=== PATIENT | female | born 1935 | race Caucasian/White ===

== ENCOUNTER 2017-07-27 05:54 | Inpatient (IN) | payer OTHER ==
[2017-07-24 16:02] VITALS: BMI 23.3
[2017-07-27] MEDS ORDERED: CEFAZOLIN 1 GM/D5W 50 ML IVPB ONE (06:07)
[2017-07-27] MEDS ORDERED: GABAPENTIN 300 MG CAPSULE (FP) PO ONE (06:07)
[2017-07-27] MEDS ORDERED: PANTOPRAZOLE 40 MG TABLET (FP) PO ONE (06:07)
[2017-07-27] MEDS ORDERED: oxyCODONE HCL 10 MG SUSTAINED ACTING TABLET PO ONE (06:07)
[2017-07-27] MEDS ORDERED: CELECOXIB 200 MG CAPSULE PO ONE (06:07)
[2017-07-27] MEDS ORDERED: ROPIVICAINE 0.2%/MORPH PF/KETOROLAC - 51ML DISP.SYRINGE IA ONE (06:07)
[2017-07-27] MEDS ORDERED: TRANEXAMIC ACID 1000 MG/10 ML VIAL IVPUSH ONE (06:07)
[2017-07-27] MEDS ORDERED: VANCOMYCIN 1,000 MG VIAL (RESTRICTED TO ID ONLY) ONE (07:14)
[2017-07-27] MEDS ORDERED: ceFAZolin SODIUM 1 GM VIAL ONE (07:14)
[2017-07-27] MEDS ORDERED: LIDOCAINE 1% P/F 10 MG/ML VIAL ONE (07:26)
[2017-07-27] MEDS ORDERED: MIDAZOLAM HCL 2 MG/2 ML SINGLE DOSE VIAL ONE (07:26)
[2017-07-27] MEDS ORDERED: DEXAMETHASONE SOD PHOSPHATE/PF 10 MG/ML SDV ONE (07:26)
--- NOTE | 2017-07-27 07:56 | HP ---
Admitting History and Physical - Admission Chief Complaint: Right hip osteoarthritis x years History of Present Illness: 82 year old female presents in regard to her right hip. Longstanding history of right hip osteoarthritis. Patient complains of pain,limited ROM, difficulty ambulating and difficulty completing ADLs. Patient has failed conservative treatment including PO medication, activity modification, exercise program and injections. At this point, patient would like to proceed with a right total hip arthroplasty (MAKOplasty) History Source: Patient - Past Surgical History Additional Past Surgical History: See written H&P - Smoking History Smoking history: Never smoked Have you smoked in the past 12 months: No - Alcohol/Substance Use Hx Alcohol Use: Yes (RARE) Home Medications - Allergies Allergies/Adverse Reactions: Allergies Allergy/AdvReac Type Severity Reaction Status Date / Time No Known Allergies Allergy Verified 07/24/17 15:45 - Home Medications Home Medications: Ambulatory Orders Calcium 250Mg/Vit-D 125 Units [Oscal 250 mg+D -] 1 combo PO DAILY 05/12/15 Garlic 1 cap PO DAILY 05/12/15 Gluc Pabon/Chondro Pabon A/Vit C/Mn [Glucosamine 1,500 Complex Cap] 1 tab PO DAILY 05/20 Multivitamins [Multivit ([facility] Formulary)] 1 tab PO DAILY 05/12/15 [place]-3 Fatty Acids [[place]-3] 1,000 mg PO DAILY 05/12/15 Simvastatin [Zocor -] 20 mg PO HS 05/12/15 Ubidecarenone [Coq10] 50 mg PO DAILY 05/12/15 Vitamin E 400 unit PO DAILY 05/12/15 Aspirin [Ecotrin] 81 mg PO DAILY 07/03/17 Cholecalciferol (Vitamin D3) [Vitamin D-400] 400 unit PO DAILY 07/03/17 Glucosam/Chond/Hyalu/Cf Borate [Move Free Joint Health Tablet] 1 each PO DAILY 07/03/17 Hubbell Oil/[place]-3 Fatty Acids [[place] Oil 1,000 mg Softgel] 1 each PO DAILY Review of Systems - Review of Systems Musculoskeletal: reports: Decreased ROM (Right hip), Joint Pain (Right hip) Physical Examination Vital Signs: Vital Signs Temperature 98.2 F 07/27/17 07:09 Pulse Rate 84 07/27/17 07:09 Respiratory Rate 18 07/27/17 07:09 Blood Pressure 138/69 07/27/17 07:09 O2 Sat by Pulse Oximetry (%) Constitutional: Yes: Well Nourished, No Distress Eyes: Yes: Conjunctiva Clear HENT: Yes: Atraumatic, Normocephalic Neck: Yes: Supple Cardiovascular: Yes: Regular Rate and Rhythm Respiratory: Yes: Regular Gastrointestinal: Yes: Soft ...Rectal Exam: Yes: Deferred Musculoskeletal: Yes: Joint Stiffness (right hip), Joint Swelling (right hip) Assessment/Plan 82 year old female presents today in regard to her right hip. Longstanding history of right hip osteoarthritis. Patient complains of pain, limited ROM, difficulty ambulating and difficulty with ADLs. Patient has failed all conservative treatment. Proceed with right total hip arthroplasty (MAKOplasty).
--- NOTE | 2017-07-27 11:55 | OP ---
Operative Note - Note: Operative Date: 07/27/17 Pre-Operative Diagnosis: right hip OA Operation: right MATTY MAKOplasty Post-Operative Diagnosis: Same as Pre-op Surgeon: Jonathon Cole [employer] Counselors: Tiny Matute Anesthesia: Spinal Estimated Blood Loss (mls): 200
[2017-07-27] MEDS ORDERED: MAGNESIUM HYDROX 2400MG/30ML ORAL SUSPENSION 30 ML CUP PO PRN (12:07)
[2017-07-27] MEDS ORDERED: ONDANSETRON 4 MG/2 ML VIAL IVPB PRN (12:07)
[2017-07-27] MEDS ORDERED: MAG HYDROX/AL HYDROX/SIMETH 30 ML UNIT-DOSE CUP PO PRN (12:07)
[2017-07-27] MEDS ORDERED: LACTATED RINGERS SOLUTION 1,000 ML IV SCH (12:15)
[2017-07-27] MEDS: traMADol HCL 50 MG TABLET PO SCH ×2 (12:30→17:34)
[2017-07-27] MEDS ORDERED: ACETAMINOPHEN 1000 MG/100 ML VIAL (NON FORMULARY) IVPB ONE (12:30)
[2017-07-27] MEDS: KETOROLAC TROMETHAMINE 30 MG/1 ML VIAL IVPUSH SCH ×2 (12:30→17:32)
[2017-07-27] MEDS ORDERED: ONDANSETRON 4 MG/2 ML VIAL IVPUSH PRN (12:46)
[2017-07-27] MEDS ORDERED: oxyCODONE HCL 5 MG TABLET PO PRN (12:47)
--- NOTE | 2017-07-27 13:43 | SPEC ---
DATE OF OPERATION: 07/27/2017 PREOPERATIVE DIAGNOSIS: Right hip osteoarthritis. POSTOPERATIVE DIAGNOSIS: Right hip osteoarthritis. PROCEDURE: Right total hip replacement with MAKOplasty robotic navigation. ATTENDING: Jonathon Cole MD TRAVEL REGISTERED NURSE ONCOLOGY: JOHN Lugo ANESTHESIA: Spinal plus sedation. ESTIMATED BLOOD LOSS: 200 mL COMPLICATIONS: None. SPECIMENS: Resected bone was sent for pathological analysis. DISPOSITION: The patient was transferred to the PACU in stable condition. IMPLANTS USED: Edison Accolade II size 5 femoral component, [place] Tritanium 54-mm acetabular component with 30-mm screw, MDM bipolar head ball with ceramic inner head. INDICATIONS: This is an 82-year-old female who presented to the office with severe right hip pain. She had a history of bilateral hip osteoarthritis and had undergone a left total hip replacement in 2014 with complete pain relief afterwards. She had scheduled the right total hip replacement for July 19, 2017, with Dr. Christopher Arce, but he left [facility], and her surgery was canceled at the last minute. She was referred to me for the procedure. At this point, she had already been worked up and medically cleared and had expected to have the surgery on that date. We tried to get her back on the schedule as soon as possible, and an opening did arise. Her radiographs did show severe grade 4 osteoarthritis of the hip. She had been treated nonoperatively by Dr. Arce for quite some time and that had failed and she was indicated for the hip replacement. The risks, benefits, and alternatives to the procedure were explained to the patient in great detail, and she elected to proceed with the surgery. DESCRIPTION OF PROCEDURE: On the day of surgery, the patient was taken to the OR and placed on the OR table. Spinal anesthesia was administered by the anesthesiologist. The patient was then positioned in the lateral decubitus position on the table and all bony prominences were padded. An axillary roll was placed. The operative hip was then prepped and draped in the usual sterile fashion and intravenous antibiotics were given for infection prophylaxis. A surgical time-out was then performed with the team, and the patients identity, procedure, side, availability of implants, and the administration of antibiotics were confirmed. An approximately 15-cm longitudinal incision was made through the skin centered on the greater trochanter of the hip. This dissection was carried down through the subcutaneous tissues to the deep fascia. This fascia was then incised and a Cobra was placed around the inferior femoral neck. Electrocautery was used to reflect the anterior 40% of the gluteus medius and minimus starting at the musculotendinous junction and leaving a cuff for closure. This was reflected to reveal the capsule of the hip joint. An anterior capsulectomy was performed and the femoral head and neck were visualized. Grade 4 changes were noted diffusely throughout the joint. At this point, three small stab incisions were made superior to the main incision along the iliac crest. Three self-drilling Steinmann pins were then placed and the Woldme pelvic array was attached. Reference points on the limb were then entered into the robotic device and the limb length deficiency, offset, and femoral neck resection level were then calculated by the software. The hip was then dislocated with traction and external rotation. An oscillating saw was used to make the femoral neck cut at the level previously templated, and the femoral head was removed. Attention was then turned to the acetabulum. Retractors were then placed around the acetabulum and the labrum was removed. An acetabular checkpoint pin and the Woldme software were used to register the contours of the acetabulum. The acetabulum was then reamed in a single stage to the preoperatively templated size using the Woldme robotic arm. The appropriately sized cup was then impacted and had solid fixation as well as the preset inclination and version of 40 and 20 degrees, respectively. A polyethylene liner was then placed in the cup. Attention was then turned back to the femur, which was externally rotated for improved visualization. A femoral neck elevator was used to present the femoral neck cut, a box osteotome was used to enter the femoral canal, and a canal finder was used to go down the femoral shaft. The Tyrese broaches were used sequentially until the optimal scratch fit was achieved. This correlated with the preoperatively templated size. From here, several different offset head and neck configurations were tested until excellent stability and length were obtained. These measurements were quantified using the Woldme software. All trial components were then removed, the femur was copiously irrigated, and the final components were placed. Leg length and stability were checked again and found to be excellent. Irrigation was performed again. Wound closure was started by repairing the abductor muscles with a no. 2 FiberWire stitch in a Krackow configuration passed through bone tunnels in the greater trochanter and tied over a bony bridge. This repair was then reinforced with a 0 V-Loc 180 barbed suture. Next, no. 1 Polysorb and 0 V-Loc 180 were used to close the fascia. The deep subcutaneous tissue was closed with no. 1 Polysorb sutures, and 2-0 Polysorb was used for the superficial subcutaneous tissue. The skin was closed using both 3-0 V-Loc 90 suture in a running subcuticular fashion and SwiftSet skin adhesive. The Tyrese array and pins were removed from the iliac crest and the stab incision sites were irrigated and closed with 4-0 Polysorb sutures and SwiftSet skin adhesive. Once this was completed, a sterile dressing was applied. The patient was then awakened and taken to the PACU in stable condition. ADDENDUM: After the final components were placed, a 3-minute dilute Betadine lavage was performed according to the [facility] protocol. Following this, the wounds were thoroughly irrigated with normal saline via pulsatile lavage, and wound closure was begun. Sarina EASON/[id number]
[2017-07-27] MEDS: CEFAZOLIN 1 GM/D5W 50 ML IVPB SCH (17:34)
[2017-07-27] MEDS: ACETAMINOPHEN 325 MG TABLET (FP) PO SCH (17:41)
[2017-07-27] MEDS: oxyCODONE HCL 5 MG TABLET PO PRN (19:31)
[2017-07-27] MEDS ORDERED: DEXAMETHASONE SOD PHOSPHATE 10 MG/1 ML VIAL IVPB ONE (20:00)
[2017-07-27] MEDS: ASCORBIC ACID 500 MG TABLET (FP) PO SCH (21:34)
[2017-07-27] MEDS: SENNOSIDES/DOCUSATE COMBO (SENNA PLUS) TABLET (UD) PO SCH (21:34)
[2017-07-27] MEDS: GABAPENTIN 300 MG CAPSULE (FP) PO SCH (21:34)
[2017-07-27] MEDS: oxyCODONE HCL 10 MG SUSTAINED ACTING TABLET PO SCH (21:34)
[2017-07-27] MEDS: ATORVASTATIN CA 10 MG TABLET (FP) PO SCH (21:34)
[2017-07-27] MEDS: CELECOXIB 200 MG CAPSULE PO SCH (21:34)
[2017-07-28] MEDS: KETOROLAC TROMETHAMINE 30 MG/1 ML VIAL IVPUSH SCH ×2 (00:18→06:14)
[2017-07-28] MEDS: traMADol HCL 50 MG TABLET PO SCH ×4 (00:19→18:15)
[2017-07-28] MEDS: ACETAMINOPHEN 325 MG TABLET (FP) PO SCH ×4 (00:20→18:15)
[2017-07-28] MEDS: CEFAZOLIN 1 GM/D5W 50 ML IVPB SCH (01:44)
[2017-07-28 08:10] LABS: MCH 32.8 pg (25.7-33.7); MCHC 34.3 g/dl (32.0-36.0); MEAN CELL VOLUME 95.7 fl (80-96); MEAN PLT VOLUME 8.4 fl (7.5-11.1); PLATELET COUNT 211 K/MM3 (134-434); RDW 12.1 % (11.6-15.6); WHITE BLOOD COUNT 11.2 K/mm3 (4.0-10.8)
[2017-07-28] MEDS: ASPIRIN 325 MG TABLET PO SCH (08:33)
[2017-07-28 08:42] LABS: ANION GAP 6 (8-16); CALCIUM 9.5 mg/dl (8.4-10.2); CO2 27 mmol/L (22-28); CREATININE 0.8 mg/dl (0.6-1.3); GLUCOSE,RANDOM 157 mg/dl (74-106)
[2017-07-28] MEDS: CELECOXIB 200 MG CAPSULE PO SCH ×2 (09:03→21:08)
[2017-07-28] MEDS: PANTOPRAZOLE 40 MG TABLET (FP) PO SCH (09:03)
[2017-07-28] MEDS: GABAPENTIN 300 MG CAPSULE (FP) PO SCH ×2 (09:03→21:08)
[2017-07-28] MEDS: MULTIVITAMINS (DAILY MVI) TABLET (FP) PO SCH (09:04)
[2017-07-28] MEDS: ASCORBIC ACID 500 MG TABLET (FP) PO SCH ×2 (09:04→21:08)
[2017-07-28] MEDS: SENNOSIDES/DOCUSATE COMBO (SENNA PLUS) TABLET (UD) PO SCH ×2 (09:04→21:08)
[2017-07-28] MEDS: oxyCODONE HCL 10 MG SUSTAINED ACTING TABLET PO SCH ×2 (09:04→21:09)
--- NOTE | 2017-07-28 11:24 | PN ---
Progress Note (short form) - Note Progress Note: 82 yo female POD#1 s/p MATTY. Doing well. Ambulating with assistance. Participating in PT. Tolerating PO. Paid adequately controlled.
--- NOTE | 2017-07-28 20:39 | PN ---
Progress Note (short form) - Note Progress Note: Pt seen and examined. Comfortable. Doing well. AVSS Selected Entries 07/28/17 14:09 Temperature 98.2 F Pulse Rate 63 Respiratory 16 Rate Blood Pressure 86/42 O2 Sat by Pulse 95 Oximetry (%) Laboratory Tests 07/28/17 07/28/17 07:00 07:00 WBC 11.2 H D Hgb 11.0 D Hct 32.1 L D Plt Count 211 Sodium 138 Potassium 5.1 Chloride 105 Carbon Dioxide 27 Anion Gap 6 L BUN 23 H D Creatinine 0.8 D Random Glucose 157 H D Calcium 9.5 Gen: NAD RLE: c/d/i, NVID A/P 82yo female POD#1 s/p R MATTY 1. PT/OOB - WBAT RLE 2. D/C in AM after PT; f/u in office in 10-14 days.
--- NOTE | 2017-07-28 20:48 | DS ---
Physical Examination Vital Signs: Vital Signs Temperature 98.2 F 07/28/17 14:09 Pulse Rate 63 07/28/17 14:09 Respiratory Rate 16 07/28/17 20:22 Blood Pressure 86/42 07/28/17 14:09 O2 Sat by Pulse Oximetry (%) 95 07/28/17 20:22 Labs: CBC, BMP 07/28/17 07:00 07/28/17 07:00 Discharge Summary Reason For Visit: RIGHT HIP OSTEOARTHRITIS Current Active Problems Osteoarthritis of right hip (Acute) Procedures: Principal: right MATTY Hospital Course: Admitted for elective surgery. Procedure performed without complications. Pt received postoperative antibiotic prophylaxis and DVT ppx. Ambulated with physical therapy. Stable for discharge home with outpatient followup. Condition: Stable - Instructions Diet, Activity, Other Instructions: Dr Cole - Hip Replacement Instructions Keep the Aquacel dressing on until removed by Dr. Cole in 10-14 days - it is antibacterial and waterproof and you can shower with it on. Call the office for a follow-up appointment with Dr. Cole in 10-14 days. Take one (enteric-coated) Aspirin 325mg daily for 6 weeks to prevent blood clots in your legs. Take one Pantoprazole 40mg daily for 6 weeks to protect against heartburn and ulcers. Take Celebrex 200mg once daily for 30 days to reduce swelling and inflammation. Take a multivitamin, extra Vitamin C supplement, and stool softener daily. For pain: *Mild pain (1-3/10): Take 1 Tramadol tablet every 4 hours as needed. Moderate pain (4-6/10): Take 1 Tramadol tablet and 1 Percocet tablet every 4 hours as needed. Severe pain (7-10/10): Take 1 Tramadol tablet and 2 Percocet tablets every 4 hours as needed. Activity: You can put as much weight on the operative leg as you want. For the first 6 weeks, all you need to do is walk around the house, go up/down stairs, and sit down/get up. After 6 weeks when everything is healed (and bone has grown into the implant) you will be sent for more intensive outpatient physical therapy. Always use a walker or cane for balance and to prevent falls. Disposition: VNS/HOME HEALTH CARE - Home Medications Comprehensive Discharge Medication List: Ambulatory Orders Calcium 250Mg/Vit-D 125 Units [Oscal 250 mg+D -] 1 combo PO DAILY 05/12/15 Garlic 1 cap PO DAILY 05/12/15 Gluc Pabon/Chondro Pabon A/Vit C/Mn [Glucosamine 1,500 Complex Cap] 1 tab PO DAILY 05/20 Multivitamins [Multivit ([facility] Formulary)] 1 tab PO DAILY 05/12/15 [place]-3 Fatty Acids [[place]-3] 1,000 mg PO DAILY 05/12/15 Simvastatin [Zocor -] 20 mg PO HS 05/12/15 Ubidecarenone [Coq10] 50 mg PO DAILY 05/12/15 Vitamin E 400 unit PO DAILY 05/12/15 Cholecalciferol (Vitamin D3) [Vitamin D-400] 400 unit PO DAILY 07/03/17 Glucosam/Chond/Hyalu/Cf Borate [Move Free Joint Health Tablet] 1 each PO DAILY 07/03/17 Bude Oil/[place]-3 Fatty Acids [[place]ude Oil 1,000 mg Softgel] 1 each PO DAILY Ascorbic Acid [Vitamin C -] 500 mg PO BID tablet 07/28/17 Aspirin [ASA -] 325 mg PO DAILY@0800 tablet 07/28/17 Celecoxib [CeleBREX -] 200 mg PO DAILY #30 tab 07/28/17 Multivitamins [Multivit ([facility] Formulary)] 1 tab PO DAILY tab 07/28/17 Oxycodone HCl/Acetaminophen [Percocet 5-325 mg Tablet] 1 - 2 tab PO Q4H PRN #60 tablet MDD 8 07/28/17 Pantoprazole Sodium [Protonix -] 40 mg PO DAILY #40 tab 07/28/17 Sennosides/Docusate Sodium [Pericolace -] 2 tablet PO BID tablet 07/28/17 Tramadol HCl [Ultram -] 50 mg PO Q4H PRN #90 tablet MDD 6 07/28/17
[2017-07-28] MEDS: ATORVASTATIN CA 10 MG TABLET (FP) PO SCH (21:08)
[2017-07-28] MEDS: oxyCODONE HCL 5 MG TABLET PO PRN (21:09)
[2017-07-29] MEDS: ACETAMINOPHEN 325 MG TABLET (FP) PO SCH ×2 (03:48→05:56)
[2017-07-29] MEDS: traMADol HCL 50 MG TABLET PO SCH ×2 (03:48→05:55)
[2017-07-29 06:48] VITALS: BP 121/59; PULSE 72; TEMP 98.7
[2017-07-29 07:37] LABS: MCH 31.8 pg (25.7-33.7); MCHC 32.8 g/dl (32.0-36.0); MEAN CELL VOLUME 96.9 fl (80-96); MEAN PLT VOLUME 7.8 fl (7.5-11.1); PLATELET COUNT 203 K/MM3 (134-434); RDW 12.1 % (11.6-15.6)
[2017-07-29 08:07] LABS: ANION GAP 3 (8-16); CALCIUM 8.9 mg/dl (8.4-10.2); CO2 29 mmol/L (22-28); CREATININE 0.7 mg/dl (0.6-1.3); GLUCOSE,RANDOM 97 mg/dl (74-106)
[2017-07-29] MEDS: ASPIRIN 325 MG TABLET PO SCH (08:19)
[2017-07-29] MEDS: oxyCODONE HCL 10 MG SUSTAINED ACTING TABLET PO SCH (09:36)
[2017-07-29] MEDS: CELECOXIB 200 MG CAPSULE PO SCH (09:36)
[2017-07-29] MEDS: GABAPENTIN 300 MG CAPSULE (FP) PO SCH (09:36)
[2017-07-29] MEDS: MULTIVITAMINS (DAILY MVI) TABLET (FP) PO SCH (09:37)
[2017-07-29] MEDS: ASCORBIC ACID 500 MG TABLET (FP) PO SCH (09:37)
[2017-07-29] MEDS: PANTOPRAZOLE 40 MG TABLET (FP) PO SCH (09:37)
[2017-07-29] MEDS: SENNOSIDES/DOCUSATE COMBO (SENNA PLUS) TABLET (UD) PO SCH (09:37)
--- NOTE | 2017-07-31 14:54 | PATH ---
Surgical Pathology Report Patient Name: JAMEE HADLEY Med. Rec. #: [id number] /Age/Gender: 1935 (Age: 82) / F Account: [id number] Location: [facility] Taken: 07/27/2017 Received: 07/27/2017 Reported: 07/31/2017 Physicians: Jonathon Cole M.D. Specimen(s) Received RIGHT FEMORAL HEAD Clinical History Right hip osteoarthritis Final Diagnosis FEMORAL HEAD, RIGHT, TOTAL HIP REPLACEMENT: DEGENERATIVE JOINT DISEASE. Electronically Signed Koki Garcia M.D. Gross Description Received in formalin, labeled "right femoral head," is a 4.7 x 4.7 x 3 point cm. femoral head with a 1.6 cm length portion of femoral neck attached. The margin of resection is smooth. There is a 3 cm in greatest dimension area of eburnation identified. The remaining articular surface is goldman-yellow and diffusely granular. The underlying trabecular bone is yellow and hard. A client services representative section is submitted in one cassette, following decalcification. 07/28/2017 [facility]07/28/2017
== END 2017-07-29 12:30 | disposition home health service (06) | DRG 470 ==
LOC: FM/S 05:54
PROVIDERS: ADMIT Student in an Organized Health Care Education/Training Program; ATTEND Student in an Organized Health Care Education/Training Program
PROC: 8E0W0CZ Robotic Assisted Procedure of Trunk Region, Open Approach (ICD-10-PCS; 2017-07-27)
PROC: 0SR903A Replacement of Right Hip Joint with Ceramic Synthetic Substitute, Uncemented, Open Approach (ICD-10-PCS; principal; 2017-07-27 09:00)
DX: M16.11 Unilateral primary osteoarthritis, right hip (principal)
CPT/HCPCS: 36415; 73502-TC-RT; 73700-TC-RT; 80048; 85027; 88304-TC; 88311-TC; 94010; 94760; 97116-GP; 97162-GP

== ENCOUNTER 2019-06-01 13:00 | Emergency (ER) | payer OTHER | END 2019-06-01 14:03 | disposition home or self-care (01) | LOC: JERFT 13:00 ==

== ENCOUNTER 2022-03-01 13:28 | Inpatient (IN) | payer OTHER ==
[2022-03-01 13:41] VITALS: BMI 23.1
[2022-03-01] MEDS ORDERED: SODIUM CHLORIDE 500 ML IV STA (14:57)
[2022-03-01] MEDS ORDERED: FAMOTIDINE 20 MG/50 ML IVPB 20 MG/50 ML MG IVPB ONE (14:57)
[2022-03-01] MEDS ORDERED: ACETAMINOPHEN 1000 MG/100 ML BAG IVPB ONE (14:57)
[2022-03-01] MEDS ORDERED: ACETAMINOPHEN INJECTION 100 ML IVPB ONE (16:09)
[2022-03-01] MEDS ORDERED: FAMOTIDINE 10 MG/ML VIAL IVPB ONE (16:10)
[2022-03-01 16:23] LABS: BASO % 0.6 % (0-2.0); EOS % 1.1 % (0-4.5); HEMATOCRIT 46.5 % (32.4-45.2); HEMOGLOBIN 15.3 GM/dL (10.7-15.3); LYMPH % 33.3 % (8-40); MCH 32.6 pg (25.7-33.7); MCHC 32.8 g/dl (32.0-36.0); MEAN CELL VOLUME 99.3 fl (80-96); MEAN PLT VOLUME 9.4 fl (7.5-11.1); MONO % 8.5 % (3.8-10.2); NEUT % 56.5 % (42.8-82.8); PLATELET COUNT 208 10^3/uL (134-434); RBC 4.68 M/mm3 (3.60-5.2); RDW 15.1 % (11.6-15.6); WHITE BLOOD COUNT 7.1 K/mm3 (4.0-10.0)
[2022-03-01 16:32] LABS: CHLORIDE 105 mmol/L (98-107); SODIUM 137 mmol/L (136-145)
[2022-03-01 16:33] LABS: ALBUMIN 3.6 g/dl (3.4-5.0); CALCIUM 9.4 mg/dL (8.5-10.1); CO2 25 mmol/L (21-32); GLUCOSE,RANDOM 83 mg/dL (74-106)
[2022-03-01 16:35] LABS: BLOOD UREA NITROGEN 19.8 mg/dL (7-18); LIPASE 104 U/L (73-393)
[2022-03-01 16:37] LABS: CREATININE 0.9 mg/dL (0.55-1.3); SGOT/AST 112 U/L (15-37)
[2022-03-01 16:39] LABS: ALK PHOS 125 U/L (45-117); BILIRUBIN,TOTAL 1.1 mg/dL (0.2-1); TOT PROT 6.5 g/dl (6.4-8.2)
[2022-03-01 16:41] LABS: ANION GAP 6 MMOL/L (8-16); SGPT/ALT 68 U/L (13-61)
[2022-03-01] MEDS ORDERED: ASPIRIN 81 MG CHEWABLE TABLETS PO ONE (16:51)
[2022-03-01] MEDS ORDERED: ASPIRIN 81 MG CHEWABLE TABLETS ONE (17:15)
[2022-03-01 18:04] LABS: ALBUMIN 3.4 g/dl (3.4-5.0); BLOOD UREA NITROGEN 19.6 mg/dL (7-18); CALCIUM 9.1 mg/dL (8.5-10.1)
[2022-03-01 18:07] LABS: CREATININE 0.7 mg/dL (0.55-1.3)
[2022-03-01 18:07] LABS: URINE APPEARANCE CLEAR; URINE BILIRUBIN NEGATIVE (NEGATIVE); URINE COLOR YELLOW; URINE GLUCOSE (UA) NEGATIVE (NEGATIVE); URINE KETONE NEGATIVE (NEGATIVE); URINE LEUK ESTERASE NEGATIVE (NEGATIVE); URINE NITRITE NEGATIVE (NEGATIVE); URINE PROTEIN TRACE (NEGATIVE); URINE UROBILINOGEN 0.2 mg/dL (0.2-1.0)
[2022-03-01 18:08] LABS: BILIRUBIN,TOTAL 1.2 mg/dL (0.2-1); TOT PROT 5.5 g/dl (6.4-8.2)
[2022-03-01] MEDS ORDERED: amLODIPine BESYLATE 5 MG TABLET (FP) PO ONE (18:47)
[2022-03-01] MEDS ORDERED: amLODIPine BESYLATE 5 MG TABLET (FP) ONE (18:51)
[2022-03-01] MEDS ORDERED: ATORVASTATIN CA 80 MG TABLET (FP) PO ONE (21:15)
[2022-03-01] MEDS ORDERED: ATORVASTATIN CA 80 MG TABLET (FP) ONE (21:27)
[2022-03-02] MEDS ORDERED: FUROSEMIDE 40 MG/4 ML INJECTABLE VIAL IVPUSH ONE (01:42)
[2022-03-02] MEDS ORDERED: FUROSEMIDE 40 MG/4 ML INJECTABLE VIAL ONE (01:49)
[2022-03-02 07:00] LABS: BASO % 0.9 % (0-2.0); EOS % 1.8 % (0-4.5); HEMATOCRIT 45.9 % (32.4-45.2); HEMOGLOBIN 15.4 GM/dL (10.7-15.3); LYMPH % 29.3 % (8-40); MCH 32.8 pg (25.7-33.7); MCHC 33.6 g/dl (32.0-36.0); MEAN CELL VOLUME 97.7 fl (80-96); MEAN PLT VOLUME 8.8 fl (7.5-11.1); MONO % 8.6 % (3.8-10.2); NEUT % 59.4 % (42.8-82.8); PLATELET COUNT 156 10^3/uL (134-434); RDW 14.9 % (11.6-15.6); WHITE BLOOD COUNT 5.7 K/mm3 (4.0-10.0)
[2022-03-02 07:09] LABS: INR 1.36 (0.83-1.09); PROTHROMBIN TIME (PATIENT) 15.7 SEC (9.7-13.0)
[2022-03-02 07:22] LABS: ALBUMIN 3.4 g/dl (3.4-5.0); BLOOD UREA NITROGEN 17.1 mg/dL (7-18); MAGNESIUM 1.8 mg/dL (1.8-2.4)
[2022-03-02 07:25] LABS: BILIRUBIN,TOTAL 1.6 mg/dL (0.2-1); CREATININE 0.7 mg/dL (0.55-1.3); PHOSPHOROUS 3.4 mg/dL (2.5-4.9)
[2022-03-02 07:26] LABS: TOT PROT 5.5 g/dl (6.4-8.2)
[2022-03-02] MEDS ORDERED: METOPROLOL TARTRATE 25 MG TABLET (FP) PO ONE (07:46)
[2022-03-02 08:46] LABS: N-TERMINAL BNP 3533.3 pg/ml (5-450)
[2022-03-02] MEDS ORDERED: HEPARIN NA (PORCINE) 5,000 UNITS/ML 1ML VIAL IVPUSH PRN ×2 (09:28)
[2022-03-02] MEDS ORDERED: ASPIRIN 81 MG CHEWABLE TABLETS PO ONE (09:28)
[2022-03-02] MEDS ORDERED: HEPARIN - 25,000 UNIT in SODIUM CHLORIDE 495 ML IV SCH (09:30)
[2022-03-02] MEDS ORDERED: ENOXAPARIN NA (PORCINE) 40 MG/0.4 ML DISP.SYRIN SQ SCH (10:00)
[2022-03-02] MEDS ORDERED: FAMOTIDINE 10 MG TABLET PO SCH (10:00)
[2022-03-02] MEDS ORDERED: FAMOTIDINE 20 MG TABLET ONE (10:16)
[2022-03-02] MEDS ORDERED: ASPIRIN 325 MG TABLET ONE (10:16)
[2022-03-02] MEDS ORDERED: METOPROLOL TARTRATE 25 MG TABLET (FP) ONE (10:16)
[2022-03-02] MEDS ORDERED: HEPARIN INFUSION - 25,000 UNITS/500 ML INFUS.BAG IVPB ONE (10:17)
[2022-03-02] MEDS ORDERED: HEPARIN NA (PORCINE) 5,000 UNITS/ML 1ML VIAL ONE (10:17)
[2022-03-02] MEDS ORDERED: MAGNESIUM SULFATE IN WATER 2 GM/50 ML IVPB IVPB ONE (13:05)
[2022-03-02] MEDS ORDERED: POTASSIUM CHLORIDE TABS 20 MEQ TABLET.ER (FP) PO ONE (13:11)
[2022-03-02] MEDS: SACUBITRIL/VALSARTAN 24 MG-26 MG TABLET PO SCH ×2 (14:22→21:33)
[2022-03-02 21:39] VITALS: BP 123/82; PULSE 96; TEMP 98
[2022-03-02] MEDS ORDERED: METOPROLOL TARTRATE 25 MG TABLET (FP) PO SCH (22:00)
[2022-03-02] MEDS ORDERED: ATORVASTATIN CA 80 MG TABLET (FP) PO SCH (22:00)
[2022-03-03] MEDS ORDERED: ASPIRIN 81 MG CHEWABLE TABLETS PO SCH (10:00)
== END 2022-03-02 22:27 | disposition short-term general hospital (02) | DRG 280 ==
LOC: JER 13:28 → JERBED 17:56 → J4W 03-02 12:30 → OBSVTOIN 03-02 14:20
PROVIDERS: ADMIT Hospitalist; ATTEND Internal Medicine
DX: I21.4 Non-ST elevation (NSTEMI) myocardial infarction (principal); I50.23 Acute on chronic systolic (congestive) heart failure; E78.5 Hyperlipidemia, unspecified; I11.0 Hypertensive heart disease with heart failure; R06.02 Shortness of breath; I44.7 Left bundle-branch block, unspecified; I08.1 Rheumatic disorders of both mitral and tricuspid valves
CPT/HCPCS: 36415; 71046-TC-FY; 76705-TC; 80053; 80061; 81003; 83036; 83690; 83735; 83880; 84100; 84443; 84484; 85025; 85610; 85730; 87086; 87186; 93005; 93010; 93306-TC; 99285-25; C9803-CS; G0378; J1644; U0003; U0005

== ENCOUNTER 2022-08-16 10:47 | Emergency (ER) | payer OTHER ==
[2022-08-16 11:18] VITALS: BP 134/79; PULSE 73; RESP 18; TEMP 98.4; BMI 20.9
== END 2022-08-16 15:08 | disposition home or self-care (01) ==
LOC: FER 10:47
DX: M25.551 Pain in right hip (principal)
CPT/HCPCS: 70450-TC; 71045-TC-FY; 72125-TC; 73502-TC-RT-FY; 93005; 99285-25

== ENCOUNTER 2025-07-04 20:45 | Inpatient (IN) | payer OTHER ==
[2025-07-04 21:38] LABS: ABSOLUTE IMMATURE GRANULOCYTES 0.02 x10^3/uL (0.0-0.031); BASOPHILS # 0.03 x10^3/uL (0.01-0.08); EOSINOPHIL % 1.6 % (0.7-5.8); EOSINOPHILS # 0.14 x10^3/uL (0.04-0.36); MCHC 32.2 g/dl (32.2-35.5); MEAN CELL VOLUME 104.0 fl (79.4-94.8); MEAN PLT VOLUME 9.9 fl (9.4-12.3); MONOCYTE # 0.87 x10^3/uL (0.24-0.86); MONOCYTE % 10.1 % (4.7-12.5); RDW 13.4 % (12.5-17.0)
[2025-07-04 21:58] LABS: GLUCOSE,RANDOM 96.0 mg/dL (74-106)
[2025-07-04 21:59] LABS: TOT PROT 6.4 g/dl (6.4-8.2)
[2025-07-04 22:00] LABS: CO2 19.0 mmol/L (21-32)
[2025-07-04 22:01] LABS: ALK PHOS 123.0 U/L (40-150)
[2025-07-04 22:04] LABS: SGOT/AST 57.0 U/L (5-34); SGPT/ALT 71.0 U/L (0-55)
[2025-07-04] MEDS ORDERED: FUROSEMIDE 40 MG/4 ML INJECTABLE VIAL ONE ×2 (22:10→22:26)
[2025-07-04 22:11] LABS: INR 1.33 (0.83-1.09); N-TERMINAL BNP 5097.3 pg/mL (0-299.9); PROTHROMBIN TIME (PATIENT) 14.5 SEC (9.7-13.0)
[2025-07-04 22:14] LABS: ACTIVATED PTT 31.3 SECONDS (25.2-36.5)
[2025-07-04] MEDS: FUROSEMIDE 40 MG/4 ML INJECTABLE VIAL IVPUSH ONE ×3 (22:19→22:31)
[2025-07-04 22:24] LABS: CREATININE 1.04 mg/dL (0.55-1.3)
[2025-07-04 22:46] LABS: HCV DIAGNOSTIC IN-HOUSE W/RFLX NON-REACTIVE (NONREACTIVE)
[2025-07-04 22:47] LABS: HIV INTERPRETATION NEGATIVE (NEGATIVE)
[2025-07-05 03:02] VITALS: BMI 20.2
[2025-07-05 06:39] LABS: URINE APPEARANCE CLEAR; URINE BILIRUBIN NEGATIVE (NEGATIVE); URINE COLOR YELLOW; URINE GLUCOSE (UA) 1+ (NEGATIVE); URINE KETONE NEGATIVE (NEGATIVE); URINE LEUK ESTERASE NEGATIVE (NEGATIVE); URINE NITRITE NEGATIVE (NEGATIVE); URINE PROTEIN NEGATIVE (NEGATIVE); URINE UROBILINOGEN 0.2 mg/dL (0.2-1.0)
[2025-07-05 07:23] LABS: ABSOLUTE IMMATURE GRANULOCYTES 0.03 x10^3/uL (0.0-0.031); BASOPHILS # 0.04 x10^3/uL (0.01-0.08); EOSINOPHIL % 1.8 % (0.7-5.8); EOSINOPHILS # 0.15 x10^3/uL (0.04-0.36); MCHC 33.0 g/dl (32.2-35.5); MEAN CELL VOLUME 101.7 fl (79.4-94.8); MEAN PLT VOLUME 10.3 fl (9.4-12.3); MONOCYTE # 0.75 x10^3/uL (0.24-0.86); MONOCYTE % 9.1 % (4.7-12.5); RDW 13.3 % (12.5-17.0)
[2025-07-05 08:02] LABS: GLUCOSE,RANDOM 77.0 mg/dL (74-106); TOT PROT 6.2 g/dl (6.4-8.2)
[2025-07-05 08:03] LABS: CO2 24.0 mmol/L (21-32)
[2025-07-05 08:05] LABS: ALK PHOS 118.0 U/L (40-150)
[2025-07-05 08:08] LABS: CREATININE 1.02 mg/dL (0.55-1.3); LDL CHOLESTEROL (ONLY SJRH) 53.0 mg/dL (5-100); SGOT/AST 43.0 U/L (5-34); SGPT/ALT 58.0 U/L (0-55)
[2025-07-05] MEDS: ASPIRIN 81 MG CHEWABLE TABLETS PO SCH (09:58)
[2025-07-05] MEDS: FUROSEMIDE 40 MG/4 ML INJECTABLE VIAL IVPUSH SCH (09:59)
[2025-07-05] MEDS ORDERED: METOPROLOL TARTRATE 50 MG TABLET (FP) PO SCH (10:00)
[2025-07-05] MEDS ORDERED: SACUBITRIL/VALSARTAN 24 MG-26 MG TABLET PO SCH (10:00)
[2025-07-05] MEDS: MINERAL OIL/PET HY-PHL TOPICAL OINTMENT 454 GM JAR TP SCH (10:34)
[2025-07-05] MEDS: SACUBITRIL/VALSARTAN 24 MG-26 MG TABLET PO SCH (10:35)
[2025-07-05] MEDS: ENOXAPARIN NA (PORCINE) 40 MG/0.4 ML DISP.SYRIN SQ SCH (16:00)
[2025-07-05] MEDS: ATORVASTATIN CA 40 MG TABLET (FP) PO SCH (21:28)
[2025-07-06] MEDS: FUROSEMIDE 40 MG/4 ML INJECTABLE VIAL IVPUSH SCH (06:43)
[2025-07-06 07:50] LABS: ABSOLUTE IMMATURE GRANULOCYTES 0.02 x10^3/uL (0.0-0.031); BASOPHILS # 0.03 x10^3/uL (0.01-0.08); EOSINOPHIL % 2.9 % (0.7-5.8); EOSINOPHILS # 0.21 x10^3/uL (0.04-0.36); MCHC 32.7 g/dl (32.2-35.5); MEAN CELL VOLUME 100.9 fl (79.4-94.8); MEAN PLT VOLUME 10.6 fl (9.4-12.3); MONOCYTE # 0.74 x10^3/uL (0.24-0.86); MONOCYTE % 10.1 % (4.7-12.5); RDW 13.2 % (12.5-17.0)
[2025-07-06 08:10] LABS: GLUCOSE,RANDOM 89.0 mg/dL (74-106); TOT PROT 6.4 g/dl (6.4-8.2)
[2025-07-06 08:11] LABS: CO2 27.0 mmol/L (21-32)
[2025-07-06 08:13] LABS: ALK PHOS 114.0 U/L (40-150)
[2025-07-06 08:15] LABS: SGOT/AST 49.0 U/L (5-34); SGPT/ALT 62.0 U/L (0-55)
[2025-07-06 08:16] LABS: CREATININE 0.87 mg/dL (0.55-1.3)
[2025-07-06] MEDS ORDERED: ASPIRIN 81 MG CHEWABLE TABLETS PO SCH (10:00)
[2025-07-06] MEDS: SACUBITRIL/VALSARTAN 24 MG-26 MG TABLET PO SCH (21:35)
[2025-07-07 07:03] LABS: MCHC 32.2 g/dl (32.2-35.5); MEAN CELL VOLUME 101.9 fl (79.4-94.8); MEAN PLT VOLUME 10.1 fl (9.4-12.3); RDW 13.4 % (12.5-17.0)
[2025-07-07 08:18] LABS: GLUCOSE,RANDOM 89.0 mg/dL (74-106)
[2025-07-07 08:19] LABS: CO2 27.0 mmol/L (21-32)
[2025-07-07 08:24] LABS: CREATININE 0.86 mg/dL (0.55-1.3)
[2025-07-07] MEDS: FUROSEMIDE 40 MG TABLET (FP) PO SCH (09:58)
[2025-07-08 00:18] VITALS: RESP 18
[2025-07-08 07:18] LABS: ABSOLUTE IMMATURE GRANULOCYTES 0.03 x10^3/uL (0.0-0.031); BASOPHILS # 0.02 x10^3/uL (0.01-0.08); EOSINOPHIL % 2.5 % (0.7-5.8); EOSINOPHILS # 0.19 x10^3/uL (0.04-0.36); MCHC 32.9 g/dl (32.2-35.5); MEAN CELL VOLUME 100.5 fl (79.4-94.8); MEAN PLT VOLUME 10.1 fl (9.4-12.3); MONOCYTE # 0.87 x10^3/uL (0.24-0.86); MONOCYTE % 11.5 % (4.7-12.5); RDW 13.1 % (12.5-17.0)
[2025-07-08 07:34] LABS: GLUCOSE,RANDOM 85.0 mg/dL (74-106); TOT PROT 6.0 g/dl (6.4-8.2)
[2025-07-08 07:35] LABS: CO2 27.0 mmol/L (21-32)
[2025-07-08 07:37] LABS: ALK PHOS 102.0 U/L (40-150)
[2025-07-08 07:39] LABS: SGOT/AST 32.0 U/L (5-34); SGPT/ALT 43.0 U/L (0-55)
[2025-07-08 07:40] LABS: CREATININE 0.79 mg/dL (0.55-1.3)
[2025-07-08 14:32] VITALS: PULSE 84
[2025-07-08 14:33] VITALS: TEMP 97.9
[2025-07-08 17:29] VITALS: BP 108/83
== END 2025-07-08 17:20 | disposition home or self-care (01) | DRG 291 ==
LOC: JER 20:45 → JERBED 22:24 → OBSVTOIN 22:24 → J4W 07-05 02:27
PROVIDERS: ADMIT Internal Medicine; ATTEND Internal Medicine
DX: I11.0 Hypertensive heart disease with heart failure (principal); I50.23 Acute on chronic systolic (congestive) heart failure; I47.20 Ventricular tachycardia, unspecified; I24.89 Other forms of acute ischemic heart disease; I25.2 Old myocardial infarction; E87.5 Hyperkalemia; M16.11 Unilateral primary osteoarthritis, right hip; E78.5 Hyperlipidemia, unspecified
CPT/HCPCS: 36415; 71045-TC-FY; 80048; 80053; 80061; 81003; 82607; 82746; 83605; 83690; 83735; 83880; 84100; 84439; 84443; 84484; 85025; 85027; 85610; 85730; 86803; 87086; 87389; 93005; 93010; 93306-TC; 97116-GP; 99285-25